=== PATIENT | female | born 1990 | race Caucasian/White ===

== ENCOUNTER 2016-11-16 07:31 | Day surgery (SDC) | payer OTHER ==
[~2016-11-16 07:31] MED LIST: Buffered Lidocaine 0.9% SYRIN* 5 ML/SYR SYRINGE INTRADERM ONE; Buffered Lidocaine 0.9% SYRIN* 5 ML/SYR SYRINGE ONE; ceFAZolin 1 GM in Dextrose (*) 1 GM/50 ML BAG IVPB ONE; ceFAZolin 2 GM PREMIX(*) 2 GM/50 ML BAG IVPB ONE
[2016-11-16 07:41] LABS: UR Preg Internal Control QC Line Present
[2016-11-16] MEDS ORDERED: Bupivacaine 0.5% SDV PF* 30 ML VIAL ONE (08:22)
[2016-11-16] MEDS ORDERED: Propofol* 10 MG/ML 20 ML BTL IV PUSH ONE (09:29)
[2016-11-16] MEDS ORDERED: Atracurium* 10 MG/ML 10 ML VIAL ONE (09:29)
[2016-11-16] MEDS ORDERED: Midazolam* 1 MG/ML 5 ML VIAL (5 MG) ONE (09:29)
[2016-11-16] MEDS ORDERED: fentaNYL* 50 MCG/ML 2 ML VIAL (100 MCG VIAL) ONE ×3 (09:29→11:09)
[2016-11-16] MEDS ORDERED: Succinylcholine* 20 MG/ML 10 ML VIAL ONE (09:56)
[2016-11-16] MEDS ORDERED: Ondansetron INJ* 2 MG/ML VIAL ONE (10:19)
[2016-11-16] MEDS ORDERED: Ketorolac INJ* 30 MG/ML 1 ML VIAL ONE (10:19)
[2016-11-16] MEDS ORDERED: Dexamethasone IV* 4 MG/ML 1 ML (4 MG) ONE (10:19)
[2016-11-16] MEDS ORDERED: HYDROcodone/ACETAMIN 5-325 MG* 1 TAB PO PRN (11:03)
[2016-11-16] MEDS ORDERED: oxyCODONE/Acetamin 5/325 MG* TAB PO PRN (11:03)
[2016-11-16] MEDS ORDERED: DiMENhydriNATE IV* 50 MG/ML VIAL IV PUSH PRN (11:03)
[2016-11-16] MEDS ORDERED: Ondansetron INJ* 2 MG/ML VIAL IV PRN (11:03)
[2016-11-16] MEDS ORDERED: HYDROmorphone* 1 MG/ML 1 ML SYR ONE (11:09)
[2016-11-16] MEDS: fentaNYL* 50 MCG/ML 2 ML VIAL (100 MCG VIAL) IV PRN ×4 (11:13→11:22)
[2016-11-16] MEDS: HYDROmorphone* 1 MG/ML 1 ML SYR IV PRN ×5 (11:14→11:39)
[2016-11-16] MEDS ORDERED: oxyCODONE TAB* 5 MG TAB ONE (11:19)
[2016-11-16 13:00] VITALS: BP 127/81
--- NOTE | 2016-11-17 08:10 | OP ---
DATE OF OPERATION: 11/16/16 [facility] DATE OF : 89 ATTENDING SURGEON: Hill Saxena MD PUBLIC RELATIONS ACCOUNT SUPERVISOR: Natalee Rodas PA-C ANESTHESIOLOGIST: Jeremiah Yu MD ANESTHESIA: General PRE-OP DIAGNOSES: Dislocating right peroneal tendon; painful hardware, right fibula; and superficial peroneal nerve neuroma. POST-OP DIAGNOSES: Dislocating right peroneal tendon; painful hardware, right fibula; and superficial peroneal nerve neuroma. PRIMARY PROCEDURES: Removal of plate, right fibula; reconstruction peroneal groove; and excision of superficial peroneal nerve neuroma. DESCRIPTION OF PROCEDURE: The patient was taken to the operating room, where a longitudinal incision was made over the distal fibula. The fibular plate was identified along the lateral border of the fibula and removed with a combination locking and non-locking screwdriver. We reflected the peroneal retinaculum off the back edge of the fibula to allow visualization of the peroneal tendons, which appeared to be intact. The retinaculum was repaired by first deepening the groove, which was atrophic and somewhat convex. We made an osteotomy directly along the junction of the lateral to posterior cortex. We drove this posterior cortex anteriorly then with the bone tamp. This deepened the groove and allowed through bone sutures of #1 Vicryl using Marko-Pankaj technique to pull the retinaculum firmly at the posterior border of the fibula. The anterior soft tissues were identified and traced out the SPN nerve. There was some thickening and scaring around the nerve pretty much at the level of the mid plate anteriorly. We transected it proximally and tied off the ___ proximally with a 3-0 Ethibond suture. This was buried on paired Mik needles deep to the peroneal musculature exiting the posterior calf. We then irrigated thoroughly closing with interrupted Vicryl for periosteal sheath and nuvia for the skin and a compression dressing, plaster splint applied. [id number]/[facility] #: [id number] [facility]
== END 2016-11-16 13:01 | disposition home or self-care (01) ==
LOC: OR 07:31
PROVIDERS: ATTEND Orthopaedic Surgery
DX: M25.371 Other instability, right ankle (principal); M76.71 Peroneal tendinitis, right leg; M65.871 Other synovitis and tenosynovitis, right ankle and foot; T84.84XA Pain due to internal orthopedic prosthetic devices, implants and grafts, initial encounter; Y83.1 Surgical operation with implant of artificial internal device as the cause of abnormal reaction of the patient, or of later complication, without mention of misadventure at the time of the procedure; G57.81 Other specified mononeuropathies of right lower limb; E66.01 Morbid (severe) obesity due to excess calories
CPT/HCPCS: 81025; 88300; 88304; A9270-GY; J0330; J0690; J1100; J1170; J1885; J2250; J2405; J2704; J3010

== ENCOUNTER 2018-10-04 20:31 | Inpatient (IN) | payer BC, OTHER ==
--- NOTE | 2018-10-04 21:03 | ED ---
Psychiatric Complaint - HPI Summary HPI Summary: A 28 y/o female presents to [facility] with a chief complaint of hearing voices for the past few days. Per triage note, the voices are telling her to kill herself. She was sent to the ED by her therapist. She reports a broken leg, surgeries for her broken leg and nerve damage. She takes medication for depression and anxiety. She takes Gabapentin and Naproxen. She denies any recent illnesses and does not get periods. - History Of Current Complaint Chief Complaint: EDMentalHealth Time Seen by Provider: 10/04/18 20:54 Hx Obtained From: Patient Onset/Duration: Sudden Onset, Lasting Days, Still Present Timing: Days Severity Initially: Mild Severity Currently: Mild Character: Depressed Aggravating Factor(s): Nothing Alleviating Factor(s): Nothing Associated Signs And Symptoms: Positive: Hallucinating Related History: Positive For: Prior Psychiatric Issues Has Suicidal: Reports: Thoughts - voices telling her to commit suicide - Allergies/Home Medications Allergies/Adverse Reactions: Allergies Allergy/AdvReac Type Severity Reaction Status Date / Time Bleach (Sodium Hypochlorite) Allergy Intermediate Rash Verified 10/04/18 12:21 sodium hypochlorite solution Allergy Rash Verified 10/05/18 11:03 Home Medications: Home Medications Prozac 40 mg PO 10/05/18 [History] PMH/Surg Hx/FS Hx/Imm Hx Endocrine/Hematology History: Denies: Hx Diabetes Cardiovascular History: Denies: Hx Hypertension, Hx Pacemaker/ICD, Other Cardiovascular Problems/ Disorders Respiratory History: Denies: Other Respiratory Problems/Disorders GI History: Denies: Other GI Disorders History: Denies: Hx Renal Disease Musculoskeletal History: Denies: Other Musculoskeletal History Sensory History: Reports: Hx Contacts or Glasses - INSTRUCTS GIVEN Denies: Hx Hearing Aid Opthamlomology History: Reports: Hx Contacts or Glasses - INSTRUCTS GIVEN Neurological History: Denies: Other Neuro Impairments/Disorders Psychiatric History: Reports: Hx Anxiety - ON MEDICATION FOR, Hx Depression - ON MEDICATION FOR Denies: Hx Panic Disorder - Surgical History Surgery Procedure, Year, and Place: 1999 TONSILLECTOMY AND ADENOIDECTOMY, [facility] [place]. WART REMOVED FROM LEGS, [facility] [place]. 1999 WISDOM TEETH EXTRACTION, OFFICE. 2015 RT ANKLE ORIF [facility] [place]-TOTAL 4 SURGERIES. 05/2016, right ankle, [facility] [place] ALSO 6/ 2017 Hx Anesthesia Reactions: Yes - STATES COMES "OUT OF SURGERY MEAN AND ANGRY" Infectious Disease History: No Infectious Disease History: Denies: Traveled Outside the [place] in Last 30 Days - Family History Known Family History: Positive: Cardiac Disease, Hypertension, Diabetes - Social History Alcohol Use: None Alcohol Amount: DOESN'T DRINK FREQUENTLY-BUT DRINK ALOT WHEN DOES DRINK Substance Use Type: Reports: Marijuana Substance Use Comment - Amount & Last Used: MARIJUANA USE DAILY Smoking Status (MU): Never Smoked Tobacco Have You Smoked in the Last Year: No Review of Systems Negative: Fever Psychological: Other - positive: hearing voices telling her to kill herself All Other Systems Reviewed And Are Negative: Yes Physical Exam - Summary Physical Exam Summary: Appearance: Well-appearing, Well-nourished, lying in bed comfortable Skin: Warm, dry, no obvious rash Eyes: sclera anicteric, no conjunctival pallor ENT: mucous membranes moist Neck: deferred Respiratory: No signs of respiratory distress Cardiovascular: Appears well perfused, pulses are nml Abdomen: deferred Musculoskeletal: Moving all 4 extremities without obvious discomfort Neurological: Awake and alert, mentation is normal, speech is fluent and appropriate Psychiatric: affect is normal, does not appear anxious or depressed Triage Information Reviewed: Yes Vital Signs On Initial Exam: Initial Vitals Temp Pulse Resp BP Pulse Ox 96.7 F 82 20 133/99 97 10/04/18 20:34 10/04/18 20:34 10/04/18 20:34 10/04/18 20:34 10/04/18 20:34 Vital Signs Reviewed: Yes Diagnostics - Vital Signs Vital Signs Temp Pulse Resp BP Pulse Ox 10/04/18 20:34 96.7 F 82 20 133/99 97 - Laboratory Result Diagrams: 10/06/18 08:48 10/04/18 21:46 Lab Statement: Any lab studies that have been ordered have been reviewed, and results considered in the medical decision making process. Re-Evaluation - Re-Evaluation First Eval Re-Evaluation Time: 23:52 Change: Unchanged Comment: Pt medically cleared for MHE. Course/Dx - Course Course Of Treatment: A 28 y/o female presents to [facility] with a chief complaint of hearing voices for the past few days. Per triage note, the voices are telling her to kill herself. The physical exam was unremarkable. Bloodwork, chemistries, urines and toxicology obtained. The patient has been cleared for MHE. Per mental health digital sales manager, Dr. Mccray has decided that the patient should be admitted. Dx: psychosis. - Differential Dx/Clinical Impression Provider Diagnosis: Psychosis - Physician Notifications Discussed Care Of Patient With: Misbah Mccray Time Discussed With Above Provider: 02:20 Instructed by Provider To: Other - Per mental health digital sales manager, Dr. Mccray has decided that the patient should be admitted. Dx: psychosis. Discharge - Sign-Out/Discharge Documenting (check all that apply): Patient Departure - admit Patient Received Moderate/Deep Sedation with Procedure: No - Discharge Plan Condition: Fair Disposition: PSYCHIATRIC FACILITY[place] [place] - Billing Disposition and Condition Condition: FAIR Disposition: Psychiatric Facility [facility] [place] - Attestation Statements Document Initiated by Tammy: Yes Documenting Scribe: Lavon Oviedo Provider For Whom Tammy is Documenting (Include Credential): Steven Berger MD Scribe Attestation: Lavon Hernandez scribed for Steven Berger MD on 10/08/18 at 0546. Scribe Documentation Reviewed: Yes Provider Attestation: The documentation as recorded by the Lavon hollingsworth accurately reflects the service I personally performed and the decisions made by Steven rodriguez MD Status of Scribe Document: Viewed
[2018-10-04 21:18] LABS: Urine Appearance Clear; Urine Bacteria Absent (Absent); Urine Bilirubin Negative (Negative); Urine Blood 1+ (Negative); Urine Color Yellow; Urine Glucose Negative (Negative); Urine Ketones Negative (Negative); Urine Nitrite Negative (Negative); Urine Protein Negative (Negative); Urine Red Blood Cell 1+(3-5/hpf) (Absent); Urine Specific Gravity 1.014 (1.010-1.030); Urine Squamous Epithelial Cell Present (Absent); Urine Urobilinogen Negative (Negative); Urine White Blood Cell Trace(0-5/hpf) (Absent)
--- OUTSIDE RECORDS SUMMARY | 2018-10-04 21:26 | XMS REPORT | Continuity of Care Document ---
:1990 External Reference #:[id number] Author Name Sarah Banks Care Team Providers Name Role Phone Chely Verdugo MD Primary Care Physician Unavailable Payers Date Identification Numbers Payment Provider Subscriber Policy Number: [id number] Miquel Mayers Group Number: [id number] [address] PayID: [id number] [place] [address] Effective: 2016 Policy Number: [employer] Margaret Mayers [id number] Onset: 2016 Group Number: [id number] [address] [address] Group Name: [id number] [place] [address] [place]: [id number] Advance Directives Description No Information Available Problems Active Problems Provider Date Sprain of ankle Hill Downs MD Onset: 02/25/2016 Unspecified fracture of shaft of right fibula, Hill Downs MD Onset: initial encounter for closed fracture Displaced spiral fracture of shaft of right Hill Downs MD Onset: 2015 fibula, subsequent encounter for closed fracture with routine healing Late effect of fracture of lower extremities Hill Downs MD Onset: 2016 Family History Date Family Member(s) Observation Comments General Diabetes General Heart Disease General Stroke General Cancer General Hypertension Social History Type Date Description Comments Sex Unknown Lives With Roommate Occupation Currently Working ETOH Use Occasionally consumes alcohol Tobacco Use Start: Unknown Patient has never smoked Smoking Status Reviewed: 09/22/18 Patient has never smoked Exercise Type/Frequency Exercises sporadically Allergies, Adverse Reactions, Alerts Description No Known Drug Allergies Medications Active Medications SIG Qnty Indications Ordering Provider Date Naproxen 1 by mouth every 60tabs Dawit Muniz MD 07/29/2018 500mg Tablets 12 hours as needed pain Gabapentin take one capsule 60caps Hill Saxena, 11/19/2016 300mg by mouth twice a M.D. Capsules day Shower Chair 1units Hill Saxena, 11/17/2016 M.D. Nexplanon inserted Unknown Ibuprofen 1 by mouth three Unknown 600mg Tablets times a day as needed Buspirone HCL Lucina Chely 10mg MD Mary Tablets Fluoxetine HCL (PMDD) 1 by mouth every Unknown day 20mg Capsules History Medications Oxycodone HCL 1-2 tabs by mouth 15tabs Hill Saxena, 09/13/2017 - 5mg every 4-6 hours as M.D. 09/27/2017 Tablets needed Valium 1 tab by mouth 1 2tabs Hill Saxena, 02/22/2017 - 2mg hour prior to M.D. 08/25/2017 Tablets procedure, may repeat dose at time of procedure if needed Naproxen 1 by mouth twice a 42tabs M76.71 Hill Saxena, 01/12/2017 - 500mg day as needed M.D. 08/25/2017 Tablets Oxycodone HCL 1-2 tabs by mouth 30tabs Hill Saxena, 11/16/2016 - 5mg every 4-6 hours as M.D. 06/07/2017 Tablets needed Knee Scooter use as needed s/p T84.84xA Hill Saxena, 11/12/2016 - right ankle M.D. 10/18/2017 surgery M65.871 [place] 1 tab by mouth 20tabs Hill Downs 05/28/2016 - 5-325mg Tablets every 6 hours as 09/05/2016 needed pain Zoloft per pt Unknown - 200mg Tablets 06/07/2017 Oxycodone-Acetaminophe Unknown - n 09/05/2016 5-325mg/5ML Solution Sertraline HCL 1 by mouth every Unknown - 200mg day 06/30/2017 Tablets Amoxicillin 1 by mouth twice Unknown - 250mg a day x 10 days 06/07/2017 Capsules Duloxetine HCL 1 by mouth every Unknown - 60mg Caps day 07/13/2018 DR Ashton Medications Administered in Office Medication SIG Qnty Indications Ordering Provider Date Depomedrol 40MG Hill Saxena M.D. 01/25/2018 Injection Depomedrol 40MG Hill Saxena M.D. 07/01/2017 Injection Depomedrol 40MG Hill Saxena M.D. 02/26/2017 Injection Immunizations Description No Information Available Vital Signs Date Vital Result Comment 09/22/2018 10:06am Height 65 inches 5'5" Heart Rate 72 /min BP Systolic 124 mmHg BP Diastolic 72 mmHg Respiratory Rate 18 /min Body Temperature 97.9 F Pain Level 5 08/23/2018 10:22am Height 65 inches 5'5" Weight 280.00 lb Heart Rate 69 /min Body Temperature 98.4 F O2 % BldC Oximetry 98 % BMI (Body Mass Index) 46.6 kg/m2 08/04/2018 10:57am Height 65 inches 5'5" Heart Rate 72 /min Respiratory Rate 18 /min Body Temperature 98.2 F Pain Level 8 07/14/2018 10:46am Height 65 inches 5'5" Heart Rate 72 /min BP Systolic 132 mmHg BP Diastolic 74 mmHg Respiratory Rate 17 /min Pain Level 6 04/14/2018 10:06am Height 65 inches 5'5" Weight 319.00 lb Heart Rate 76 /min Respiratory Rate 17 /min Body Temperature 97.0 F Pain Level 5 BMI (Body Mass Index) 53.1 kg/m2 01/25/2018 11:25am Height 65 inches 5'5" Weight 319.00 lb Heart Rate 64 /min BP Systolic Sitting 130 mmHg BP Diastolic Sitting 90 mmHg Body Temperature 99.1 F Pain Level 4 BMI (Body Mass Index) 53.1 kg/m2 11/30/2017 10:51am Height 64 inches 5'4" Heart Rate 84 /min BP Systolic 148 mmHg BP Diastolic 82 mmHg Respiratory Rate 17 /min Body Temperature 98.1 F Pain Level 2 10/19/2017 9:47am Height 64 inches 5'4" Weight 282.00 lb Heart Rate 78 /min BP Systolic Sitting 124 mmHg BP Diastolic Sitting 72 mmHg Body Temperature 98.4 F Pain Level 4 BMI (Body Mass Index) 48.4 kg/m2 09/29/2017 4:03pm Height 64 inches 5'4" Weight 280.00 lb Heart Rate 66 /min BP Systolic Sitting 120 mmHg BP Diastolic Sitting 70 mmHg Respiratory Rate 16 /min Pain Level 0 BMI (Body Mass Index) 48.1 kg/m2 09/23/2017 9:17am Height 64 inches 5'4" Weight 280.00 lb BP Systolic 130 mmHg BP Diastolic 90 mmHg Respiratory Rate 20 /min Body Temperature 97.4 F Pain Level 4 BMI (Body Mass Index) 48.1 kg/m2 08/24/2017 10:21am Height 64 inches 5'4" Weight 280.00 lb Heart Rate 77 /min BP Systolic Sitting 126 mmHg BP Diastolic Sitting 72 mmHg Pain Level 6 BMI (Body Mass Index) 48.1 kg/m2 08/05/2017 10:03am Height 64 inches 5'4" Weight 280.00 lb per pt Heart Rate 80 /min reg BP Systolic Sitting 100 mmHg Lue BP Diastolic Sitting 66 mmHg Lue Respiratory Rate 16 /min Pain Level 7 Ble BMI (Body Mass Index) 48.1 kg/m2 07/01/2017 8:56am Height 64 inches 5'4" Weight 280.00 lb BP Systolic 134 mmHg BP Diastolic 90 mmHg Respiratory Rate 18 /min Body Temperature 98.5 F Pain Level 5 BMI (Body Mass Index) 48.1 kg/m2 05/14/2017 2:00pm Height 64 inches 5'4" Weight 280.00 lb BP Systolic 130 mmHg BP Diastolic 88 mmHg Body Temperature 97.6 F Pain Level 6 BMI (Body Mass Index) 48.1 kg/m2 03/30/2017 11:08am Height 65 inches 5'5" Weight 280.00 lb Respiratory Rate 16 /min Body Temperature 97.7 F BMI (Body Mass Index) 46.6 kg/m2 02/26/2017 2:46pm Height 64 inches 5'4" Weight 280.00 lb Heart Rate 66 /min Respiratory Rate 17 /min Body Temperature 98.0 F Pain Level 7 BMI (Body Mass Index) 48.1 kg/m2 02/09/2017 9:26am Height 64 inches 5'4" Weight 280.00 lb BP Systolic 116 mmHg BP Diastolic 80 mmHg Respiratory Rate 20 /min Body Temperature 98.7 F Pain Level 6 BMI (Body Mass Index) 48.1 kg/m2 01/12/2017 9:47am Height 64 inches 5'4" Weight 280.00 lb Heart Rate 73 /min BP Systolic 130 mmHg BP Diastolic 86 mmHg Body Temperature 97.5 F BMI (Body Mass Index) 48.1 kg/m2 12/22/2016 11:46am Height 64 inches 5'4" Weight 280.00 lb BP Systolic Sitting 122 mmHg BP Diastolic Sitting 78 mmHg Respiratory Rate 16 /min Body Temperature 98.4 F Pain Level 3 BMI (Body Mass Index) 48.1 kg/m2 12/01/2016 11:25am Height 65 inches 5'5" Weight 280.00 lb Body Temperature 98.1 F Pain Level 6 BMI (Body Mass Index) 46.6 kg/m2 10/20/2016 11:10am Height 65 inches 5'5" Weight 280.00 lb BP Systolic 115 mmHg BP Diastolic 85 mmHg Body Temperature 97.7 F BMI (Body Mass Index) 46.6 kg/m2 09/15/2016 11:10am Height 65 inches 5'5" Weight 280.00 lb Heart Rate 84 /min BP Systolic 114 mmHg BP Diastolic 70 mmHg Respiratory Rate 17 /min Body Temperature 98.3 F Pain Level 8 BMI (Body Mass Index) 46.6 kg/m2 08/14/2016 3:08pm Height 65 inches 5'5" Weight 280.00 lb Heart Rate 72 /min BP Systolic 119 mmHg BP Diastolic 87 mmHg Respiratory Rate 16 /min Pain Level 7 BMI (Body Mass Index) 46.6 kg/m2 07/22/2016 1:21pm Height 65 inches 5'5" Weight 280.00 lb Heart Rate 73 /min BP Systolic 131 mmHg BP Diastolic 77 mmHg Pain Level 6 BMI (Body Mass Index) 46.6 kg/m2 06/12/2016 1:41pm Height 64 inches 5'4" Weight 280.00 lb Respiratory Rate 16 /min Body Temperature 99.1 F Pain Level 0 BMI (Body Mass Index) 48.1 kg/m2 05/05/2016 3:32pm Height 64 inches 5'4" Weight 280.00 lb Respiratory Rate 17 /min Body Temperature 98.5 F Pain Level 7 BMI (Body Mass Index) 48.1 kg/m2 04/10/2016 2:02pm Height 64 inches 5'4" Weight 280.00 lb BP Systolic 124 mmHg BP Diastolic 72 mmHg Pain Level 0 BMI (Body Mass Index) 48.1 kg/m2 03/27/2016 3:39pm Height 64 inches 5'4" Weight 280.00 lb Respiratory Rate 16 /min Pain Level 6 BMI (Body Mass Index) 48.1 kg/m2 03/11/2016 2:54pm Heart Rate 88 /min Respiratory Rate 20 /min Pain Level 2 02/25/2016 1:33pm Height 64 inches 5'4" Weight 280.00 lb BP Systolic 125 mmHg BP Diastolic 80 mmHg Pain Level 8 BMI (Body Mass Index) 48.1 kg/m2 Results Test Date Facility Test Result H/L Range Note Laboratory test 09/13/2017 [facility] Surgical SEE RESULT [address] Pathology BELOW [place], [place] [id number] [phone] Laboratory test 11/16/2016 [facility] Surgical SEE RESULT [address] [place] [address] [phone] Laboratory test 11/16/2016 [facility] Negative N Negative [address] (HCG) Urine [place], [place] [id number] [phone] Laboratory test 05/28/2016 [facility] Surgical SEE RESULT 4 , [address] [place] [address] [phone] Xray 03/11/2016 [facility] Ankle Left <pending> [address] 3+VWS [place], [place] [id number] [phone] Laboratory test 02/27/2016 [facility] Negative N Negative [address] (HCG) [place] [address] [phone] 1 SEE RESULT BELOW Name: MARGARET MAYERS : [address]: Hill Saxena MD Acct: [id number] Unit: [id number] AGE: 27 Location: OR Re09/13/17 SEX: F Status: [facility] SPEC: [id number] MASOOD: 09/13/17- SUBM DR: Hill Saxena MD REQ: [id number] RECD: 09/13/17 STATUS: SOUT _ ORDERED: Decal, LEVEL 3 FINAL DIAGNOSIS Bone and cartilage, right foot, resection: -- Degenerative osteoarthritic changes. PRE-OPERATIVE DIAGNOSIS Calcaneal navicular coalition right. GROSS DESCRIPTION The specimen is received in formalin labeled, Right Foot Bone Fragments, and consists of a 3.3 x 3.0 x 0.7 cm aggregate of king-pink irregular bone fragments. Staff Nurse [facility] [employer] Team sections, one cassette following decalcification. MICROSCOPIC DESCRIPTION Signed (signature on file) Aditya Khanna MD 0919 END OF REPORT DEPARTMENT OF PATHOLOGY, [address] [place] [address] Aditya Khanna M.D. Director [facility] # [id number] 2 SEE RESULT BELOW Name: MARGARET MAYERS : [address]: Hill Saxena MD Acct: [id number] Unit: [id number] AGE: 26 Location: OR Re11/16/16 SEX: F Status: [facility] [place] SPEC: [id number] MASOOD: 11/16/16- [facility] DR: Hill Saxena MD REQ: [id number] RECD: 11/16/16 STATUS: SOUT _ ORDERED: LEVEL 1, LEVEL 3 FINAL DIAGNOSIS 1. Ankle, right, hardware removal: Foreign body (orthopedic hardware) (Gross diagnosis). 2. Ankle, right, excision: Neuroma. PRE-OPERATIVE DIAGNOSIS Painful hardware right ankle GROSS DESCRIPTION 1. The specimen is received fresh labeled, Hardware Right Ankle, and consists of an 11.6 x 1.0 x 0.1 cm silver metallic elongated plate with multiple ovoid holes. The following inscription is identified: [id number]. Received separately in the same container are eight silver metallic threaded Pankaj-headed screws ranging from 1.2 x 0.3 cm to 1.6 x 0.3 cm. Per established hospital medical staff protocol, no tissue is submitted. Gross only. 2. The specimen is received in formalin labeled, Right Ankle Neuroma, and consists of a 4.8 by up to 0.9 x 0.4 cm king irregular to elongated soft tissue fragment and adherent yellow fat. Staff Nurse [facility] [employer] Team sections, one cassette. Signed (signature on file) Denisha Merritt MD 1030 END OF REPORT * ML=Testing performed at Main Lab DEPARTMENT OF PATHOLOGY, [address] [place] [address] Aditya Khanna M.D. Director [facility] # [id number] 3 If is still suspected, please repeat test after 48 to 72 hours. This test detects intact HCG only and is indicated for the early detection of . 4 [id number] 5 SEE RESULT BELOW Name: MARGARET MAYERS : [address]: Hill Downs MD Acct: [id number] Unit: [id number] AGE: 25 Location: [facility] Re05/28/16 SEX: F Status: [facility] SPEC: [id number] MASOOD: 05/28/160940 [facility] DR: Hill Downs MD REQ: [id number] RECD: 05/28/16918 STATUS: SOUT _ ORDERED: LEVEL I COMMENTS: [id number] FINAL DIAGNOSIS Right ankle, hardware removal: Foreign body (orthopedic hardware) (Gross diagnosis). PRE-OPERATIVE DIAGNOSIS Status post right ankle open reduction internal fixation GROSS DESCRIPTION The specimen is received fresh labeled, Hardware Right Ankle Two Screws, and consists of two silver metallic threaded Pankaj-headed screws averaging 5.0 x 0.3 cm. Per established hospital medical staff protocol, no tissue is submitted. Gross only. Signed (signature on file) Denisha Merritt MD 1012 END OF REPORT * ML=Testing performed at Main Lab DEPARTMENT OF PATHOLOGY, [address] [place] [address] Aditya Khanna M.D. Director [facility] # [id number] 6 If is still suspected, please repeat test after 48 to 72 hours. This test detects intact HCG only and is indicated for the early detection of . Procedures Date Code Description Status 01/25/2018 06076 Injection,Anesthetic Agent, Other Peripheral Nerve Branch Completed 09/13/2017 70336 Ostectomy Excision Tarsal Coalition Completed 09/13/2017 01341 Ostectomy Excision Tarsal Coalition Completed 09/13/2017 74502 Ostectomy Excision Tarsal Coalition Completed 07/01/2017 11326 Injection,Anesthetic Agent, Other Peripheral Nerve Branch Completed 02/26/2017 58023 Inject Tendon Sheath Or Ligament Aponeurosis Eg Plantar Completed Fascia 12/01/2016 25916 Short Leg Cast Completed 11/16/201620754 Removal Implant Deep Wire,Screw Nail,Ronni Or Plate Completed 11/16/2016 60839 Repair Dislocating Peroneal Tendon W/Fibular Osteotomy Completed 11/16/2016 78759 Repair Dislocating Peroneal Tendon W/Fibular Osteotomy Completed 11/16/2016 60446 Excision Neuroma, Hand Or Foot Completed 11/16/2016 56113 Implant Nerve End Into Bone Or Muscle Completed 05/28/201664708 Removal Implant Deep Wire,Screw Nail,Ronni Or Plate Completed 05/28/201615607 Removal Implant Deep Wire,Screw Nail,Ronni Or Plate Completed 05/28/2016 61447 Removal Implant Deep Wire,Screw Nail,Ronni Or Plate Completed 03/11/2016 45094 Long Leg Cast Completed 03/11/2016 89473 Long Leg Cast Completed 02/27/2016 44370 Open TX Of Distaltibiofibular JT Disruption W Or W/O Completed Fixation 02/27/2016 38169 Open TX Of Distaltibiofibular JT Disruption W Or W/O Completed Fixation 02/27/2016 29278 Open TX Of Distaltibiofibular JT Disruption W Or W/O Completed Fixation 02/27/2016 54791 Open TX Of Distaltibiofibular JT Disruption W Or W/O Completed Fixation 02/27/2016 62466 ORIF Open TX Distal Fibular FX Incl Internal Fixation When Completed Perfom 02/27/2016 94280 ORIF Open TX Distal Fibular FX Incl Internal Fixation When Completed Perfom Encounters Type Date Location Provider Dx Diagnosis Office Visit 08/23/2018 [facility] M19.071 Primary 10:00a Services Of Daphne Saxena osteoarthritis, right C.M.A. 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 Office Visit 04/14/2018 Suzanna Alejandre G57.81 Other specified 10:00a Services Of Daphne Saxena mononeuropathies of C.M.A. right lower limb Office Visit 01/25/2018 [facility] G57.81 Other specified 10:30a Services Of Daphne Saxena mononeuropathies of C.M.A. right lower limb Office Visit 08/24/2017 [facility] M19.071 Primary 10:15a Services Of Daphne Saxena osteoarthritis, right C.M.A. ankle and foot M19.071 Primary osteoarthritis, right ankle and foot Office Visit 08/05/2017 Suzanna Solano9.071 Primary 10:00a Services Of Daphne Saxena osteoarthritis, C.M.A. 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 right lower limb Office Visit 05/14/2017 Suzanna Triplett Peroneal tendinitis, 2:15p Services Of Daphne Saxena right leg C.M.A. Office Visit 03/30/2017 Suzanna Triplett Peroneal tendinitis, 11:15a Services Of Daphne Saxena right leg C.M.A. Office Visit 10/20/2016 Suzanna Triplett Peroneal tendinitis, 10:45a Services Of Daphne Saxena right leg C.M.A. M65.871 Other synovitis and tenosynovitis, right ankle and foot T84.84xA Pain due to internal orthopedic prosth dev/grft, init G57.81 Other specified mononeuropathies of right lower limb Office Visit 09/15/2016 10:15a [facility] S82.441D Displ spiral fx Services Of Daphne Saxena shaft of r C.M.A. fibula, 7thD Office Visit 02/25/2016 1:00p [facility] S82.401A Unsp fracture Services Of MD Yareli of shaft of C.M.A. right fibula, init for clos fx S82.444A Nondisplaced spiral fracture of shaft of right fibula, init S82.401A Unsp fracture of shaft of right fibula, init for clos fx S93.402A Sprain of unspecified ligament of left ankle, init encntr S82.444A Nondisplaced spiral fracture of shaft of right fibula, init Plan of Treatment 09/22/2018 - Hill Saxena M.D.M19.071 Primary osteoarthritis, right ankle and footNew Xrays:MRI Ankle Right W/O, Ordered: 09/22/18Follow up:after testing is [id number] Peroneal tendinitis, right leg
--- OUTSIDE RECORDS SUMMARY | 2018-10-04 21:26 | XMS REPORT | Continuity of Care Document ---
:1990 External Reference #:[id number] Author Name TomVicky altman Care Team Providers Name Role Phone Chely Verdugo MD Primary Care Physician Unavailable Payers Date Identification Numbers Payment Provider Subscriber Policy Number: [id number] Miquel Mayers Group Number: [id number] [phone] PayID: [id number] [place] [address] Effective: 2016 Policy Number: [employer] Margaret Mayers [id number] Onset: 2016 Group Number: [id number] [address] [id number] Group Name: [id number] [place] [address] [place]ID: [place] Advance Directives Description No Information [...] times a day as needed Buspirone HCL Chely Verdugo 10mg MD Mary Tablets Fluoxetine HCL (PMDD) [...] - right ankle M.D. 10/18/2017 surgery M65.871 [place] 1 tab by mouth 20tabs [place] [...] 1 by mouth every Unknown - 60mg 07/13/2018 DR Part Medications Administered in Office Medication SIG Qnty [...] Result H/L Range Note Laboratory test 09/13/2017 [facility] Surgical SEE RESULT [address] Pathology BELOW [place], [place] [id number] [phone] Laboratory test 11/16/2016 [facility] Surgical SEE RESULT [address] Pathology BELOW [place], [place] [address] [phone] Laboratory test 11/16/2016 [facility] Negative N Negative [address] (HCG) Urine [place], [place] [address] [phone] Laboratory test 05/28/2016 [facility] Surgical SEE RESULT 4 , [address] Pathology BELOW [place], [place] [address] [phone] Xray 03/11/2016 [facility] Ankle Left <pending> [address] 3+VWS [place], [place] 399[address] [phone] Laboratory test 02/27/2016 [facility] Negative N Negative [address] (HCG) Urine [place], [place] [address] [phone] 1 SEE RESULT BELOW Name: VANGIESATURNINOMARGARET : [address]: Hill Saxena MD Acct: [id number] Unit: [id number] AGE: 27 Location: OR Re09/13/17 SEX: F Status: [facility] SPEC: [id number] MASOOD: 09/13/17- SUBM DR: Hill Saxena MD REQ: [id number] RECD: 09/13/17 STATUS: SOUT _ ORDERED: Decal, LEVEL 3 FINAL DIAGNOSIS Bone and cartilage, right foot, resection: -- Degenerative osteoarthritic changes. PRE-OPERATIVE DIAGNOSIS Calcaneal navicular coalition right. GROSS DESCRIPTION The specimen is received in formalin labeled, Right Foot Bone Fragments, and consists of a 3.3 x 3.0 x 0.7 cm aggregate of king-pink irregular bone fragments. Aircraft Machinist Helper sections, one cassette following decalcification. MICROSCOPIC DESCRIPTION Signed (signature on file) Aditya Khanna MD 0919 END OF REPORT DEPARTMENT OF PATHOLOGY, [address] [place] [address] Aditya Khanna M.D. Director [facility] # [id number] 2 SEE RESULT BELOW Name: MARGARET MAYERS : [address]: Hill Saxena MD Acct: [id number] Unit: [id number] AGE: 26 Location: OR Re11/16/16 SEX: F Status: DEP [facility] [place] SPEC: [id number] MASOOD: 11/16/16- SUBM DR: Hill Saxena MD REQ: [id number] RECD: 11/16/16 STATUS: SOUT _ ORDERED: LEVEL [...] ovoid holes. The following inscription is identified: [id number] [id number]. Received separately in the same container are [...] soft tissue fragment and adherent yellow fat. Aircraft Machinist Helper sections, one cassette. Signed (signature on file) Denisha Merritt MD 1030 END OF REPORT * ML=Testing performed at Main Lab DEPARTMENT OF PATHOLOGY, [address] [place] [address] Aditya Khanna M.D. Director [facility] # [id number] 3 If is still suspected, please repeat test after 48 to 72 hours. This test detects intact HCG only and is indicated for the early detection of . 4 [id number] 5 SEE RESULT BELOW Name: MARGARET MAYERS : [address]: Hill Downs MD Acct: [id number] Unit: [id number] AGE: 25 Location: [facility] Re05/28/16 SEX: F Status: REG [facility] SPEC: [id number] MASOOD: 05/28/160940 [facility] DR: Hill Downs MD REQ: [id number] RECD: 05/28/162157 STATUS: SOUT _ ORDERED: LEVEL I COMMENTS: [id number] FINAL DIAGNOSIS Right ankle, hardware removal: Foreign [...] performed at Main Lab DEPARTMENT OF PATHOLOGY, [address] [place] [address] Aditya Khanna M.D. Director [facility] # [id number] 6 If is still suspected, please repeat test after 48 to 72 hours. This test detects intact HCG only and is indicated for the early detection of . Procedures Date Code Description Status 01/25/2018 77719 Injection,Anesthetic Agent, Other Peripheral Nerve Branch Completed 09/13/2017 13184 Ostectomy Excision Tarsal Coalition Completed 09/13/2017 25125 Ostectomy Excision Tarsal Coalition Completed 09/13/2017 01906 Ostectomy Excision Tarsal Coalition Completed 07/01/2017 71786 Injection,Anesthetic Agent, Other Peripheral Nerve Branch Completed 02/26/2017 01360 Inject Tendon Sheath Or Ligament Aponeurosis Eg Plantar Completed Fascia 12/01/2016 21953 Short Leg Cast Completed 11/16/201693714 Removal Implant Deep Wire,Screw Nail,Ronni Or Plate Completed 11/16/2016 15882 Repair Dislocating Peroneal Tendon W/Fibular Osteotomy Completed 11/16/2016 23115 Repair Dislocating Peroneal Tendon W/Fibular Osteotomy Completed 11/16/2016 11539 Excision Neuroma, Hand Or Foot Completed 11/16/2016 77421 Implant Nerve End Into Bone Or Muscle Completed 05/28/201625703 Removal Implant Deep Wire,Screw Nail,Ronni Or Plate Completed 05/28/201655639 Removal Implant Deep Wire,Screw Nail,Ronni Or Plate Completed 05/28/2016 57047 Removal Implant Deep Wire,Screw Nail,Ronni Or Plate Completed 03/11/2016 00041 Long Leg Cast Completed 03/11/2016 00400 Long Leg Cast Completed 02/27/2016 92078 Open TX Of Distaltibiofibular JT Disruption W Or W/O Completed Fixation 02/27/2016 13615 Open TX Of Distaltibiofibular JT Disruption W Or W/O Completed Fixation 02/27/2016 95934 Open TX Of Distaltibiofibular JT Disruption W Or W/O Completed Fixation 02/27/2016 51778 Open TX Of Distaltibiofibular JT Disruption W Or W/O Completed Fixation 02/27/2016 92132 ORIF Open TX Distal Fibular FX Incl Internal Fixation When Completed Perfom 02/27/2016 32017 ORIF Open TX Distal Fibular FX Incl Internal Fixation When Completed Perfom Encounters Type Date Location Provider Dx Diagnosis Office Visit 09/22/2018 [facility] M19.071 Primary 9:45a [facility] osteoarthritis, right ankle and foot M76.71 Peroneal tendinitis, right leg Office Visit 08/23/2018 Suzanna Alejandre M19.071 Primary 10:00a Services Of [facility]ne Saxena osteoarthritis, right C.M.A. 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 Office Visit 04/14/2018 [facility] G57.81 Other specified 10:00a Services Of D[facility] Saxena mononeuropathies of C.M.A. right lower limb Office Visit 01/25/2018 [facility] G57.81 Other specified 10:30a Services Of [facility] Saxena mononeuropathies of C.M.A. right lower limb Office Visit 08/24/2017 Suzanna Alejandre M19.071 Primary 10:15a [facility] Saxena osteoarthritis, right C.M.A. ankle and foot M19.071 Primary osteoarthritis, right ankle and foot Office Visit 08/05/2017 [facility] M19.071 Primary 10:00a [facility] Saxena osteoarthritis, C.M.A. 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 right lower limb Office Visit 05/14/2017 Suzanna Escalera.71 Peroneal tendinitis, 2:15p Services [facility] Saxena right leg C.M.A. Office Visit 03/30/2017 Suzanna Triplett Peroneal tendinitis, 11:15a Services [facility] Saxena right leg C.M.A. Office Visit 10/20/2016 Suzanna Escalera.71 Peroneal tendinitis, 10:45a Services Of Daphne Saxena [...] and footNew Xrays:MRI Ankle Right W/O, Ordered: 09/22/18M76.71 Peroneal tendinitis, right leg
[2018-10-04 21:35] LABS: Urine Benzodiazepine Screen None Detected (None Detect); Urine Opiates Screen None Detected (None Detect)
[2018-10-04 22:06] LABS: Hematocrit 42 % (33-41); Hemoglobin 13.7 g/dL (12.0-16.0); Mean Corpuscular HGB Conc 33 g/dL (31-36); Mean Corpuscular Hemoglobin 27 pg (27-31); Mean Corpuscular Volume 83 fL (80-97); Platelet Count 440 10^3/uL (150-450); Red Blood Count 5.06 10^6 /uL (3.70-4.87); Red Cell Distribution Width 15 % (10.5-15); White Blood Count 16.8 10^3/uL (3.5-10.8)
[2018-10-04] MEDS ORDERED: Acetaminophen TAB* 325 MG PO ONE (22:07)
[2018-10-04] MEDS ORDERED: Ondansetron ODT TAB* 4 MG PO ONE (22:07)
[2018-10-04 22:10] LABS: ALT 18 U/L (7-52); AST 15 U/L (13-39); Albumin 4.3 g/dL (3.2-5.2); Albumin/Globulin Ratio 1.4 (1-3); Alkaline Phosphatase 71 U/L (34-104); Anion Gap 7 mmol/L (2-11); BUN/Creatinine Ratio 15.2 (8-20); Blood Urea Nitrogen 10 mg/dL (6-24); CO2 Carbon Dioxide 26 mmol/L (22-32); Calcium 9.4 mg/dL (8.6-10.3); Chloride 106 mmol/L (101-111); EGFR Non-African American 107.4 (>60); Globulin 3.1 g/dL (2-4); Glucose 102 mg/dL (70-100); Sodium 139 mmol/L (135-145); Total Protein 7.4 g/dL (6.4-8.9)
[2018-10-04 22:17] LABS: HCG Pregnancy < 0.60 mIU/mL
[2018-10-04 22:23] LABS: Acetaminophen < 15 mcg/mL; Alcohol < 10 mg/dL (<10); Salicylate < 2.50 mg/dL (<30)
[2018-10-04 22:33] LABS: ABS Basophils 0.2 10^3/ul (0-0.2); ABS Eosinophils 0.2 10^3/ul (0-0.6); ABS Neutrophils 10.5 10^3/ul (1.5-7.7); ABS Nucleated RBC 0 10^3/ul; Lymphocyte % 29.8 %; Nucleated Red Blood Cells % 0
[2018-10-04 22:38] LABS: TSH (Thyroid Stimulating Horm) 5.18 mcIU/mL (0.34-5.60)
[2018-10-05] MEDS ORDERED: Al Hydrox/Mg Hydrox/Simet LIQ* 30 ML UDC PO PRN (04:08)
--- NOTE | 2018-10-05 10:20 | HP ---
H&P (Free Text) History and Physical: Justification for admission: Immediate Safety. CC " I hear a voice that bothers me" The patient was brought to [facility] by herself after hearing a voice for the last 6 weeks telling her methods to end her life. She reported being distressed by these thoughts. The ideas that she thought about include knowing where her fathers guns are located to kills herself. Once having these thoughts she feels bad about it causing her anxiety. She expressed this to her therapist who advised her to come to the hospital. 2 weeks ago her prozac was increased from 20mg to 40mg daily by her primary care doctor. Many years she reported counting and checking many times to provide relief of anxiety. She mentioned being at her doctors office and everyone was told to evacuate due to a gas leak. She was determined to leave the building as said that if she wanted to she would have stayed. She reported having access to firearms at her fathers and knows how to access the safe where they are located. She reported having a stockpile of medication. She reported decreased sleep and wakes up early. She lost 50lbs since December. She reported having night sweats. The patient denied homicidal ideation intent or plan. The patient denied visual hallucinations. MDD She reported feeling sad and depressed and has diminished interests which were found to be enjoyable in the past. Endorsed feelings of hopelessness or worthless. Reported 50lbs weight loss since December. Endorsed interruption of sleep or feeling tired throughout the day. Reported loss of energy or lack of motivation to complete tasks and decreased concentration. Anxiety Endorsed having symptoms of anxiety such as having times where heart feels that it is beating out of chest , sweaty palms, or shallow breathing. Endorsed feeling restless, high strung, or worrying too much most of the time. Bipolar Denied symptoms of alcira such as having many ideas at once. Denied increased talkativeness where no one can interrupt. Denied feeling irritable most of the time while having an persistent abundance of energy most of the day without the use of energy drinks, stimulants, or recreational drug use. Denied an increase in intensity in goal directed activities. Denied having the decreased need to sleep for days , having prolonged elevated heighted mood , or feeling on top of the world. Denied impulsive risky sexual encounters. Denied spending money recklessly , going on spending sprees wiping out savings. Denied impulsively traveling out of town or country, having super larsen, and unrealistic wealth or fame. Psychosis Does not endorse seeing things other people do not see. Denied feeling that TV is making references. Denied feeling that people are spying , following , or reading their thoughts. Phobias: Patient denied having excessive fear of a particular thing or situation. Eating disorders: Patient denied having excessive eating habits or feelings of guilt after eating. Denied repeated episodes of self induced vomiting after eating. PTSD Denied flashbacks, nightmares and avoidance of a prior traumatic event. PAST PSYCHIATRIC HISTORY: Prior Diagnosis : Major depressive Disorder, Generalized Anxiety Disorder History of past Psychiatric Hospitalizations: No prior psychiatric admission. History of past suicide/homicide attempts : Denied past suicide attempts. Denied past homicidal incidents. Outpatient follow-up: PCP and Psychologist Jose Yang Medications: Past trials of medications include prozac 40mg daily and buspar 15mg BID taking for 6 months. Guardianship: None. FAMILY HISTORY: - Suicide: Denied family history of suicide. - Mental illness: Denied a history of mental health in immediate family members. - Substance abuse: Denied substance abuse among family members. SUBSTANCE ABUSE HISTORY: Denied using alcohol, heroin and cocaine other illicit substances. Denied abusing pills not prescribed . Denied past Substance abuse treatment. - EtOH: Denied using recently or in the past. - Tobacco: Smokes 1/2 PPD - Cannabis: Uses daily - Heroin: Denied using recently or in the past. - Cocaine: Denied using recently or in the past. - Substance abuse treatment: Denied past substance abuse treatment SOCIAL HISTORY: Denied physical and or sexual abuse Born and raised in [place], [place] by both parents. She is single no children and lives in a carriage house with her cousins in [place] She works at the [employer] in [place]. - Legal history: Denied - service history: Denied PAST MEDICAL HISTORY: Right fibula fracture. Bacterial vaganosis Dx and treated a week ago. - Allergies: Bleach and chlorine Physical Exam: Please see ED note Mental Status Exam on Admission APPEARANCE : 28 year old female who appears stated age. Obese, appears to have fair hygiene and grooming. BEHAVIOR: Cooperative , calm EYE CONTACT: Fair PSYCHOMOTOR ACTIVITY: No psychomotor agitation or retardation. MOVEMENTS: No abnormal movements observed. SPEECH : Normal rate, rhythm, volume and tone. MOOD : "Anxious " AFFECT : Type is anxious Range is full , Mood congruent, Stable THOUGHT PROCESS: formulated and organized in a logical, linear goal directed manner. No flight of ideas , neologism (made up words) , perseveration , tangential , loose associations , or circumstantiality. THOUGHT CONTENT: preoccupation about suicidal thoughts PERCEPTION: Current auditory hallucinations. Doesnt appear to be responding to internal cues. No evidence of depersonalization , de-realization, or illusions SUICIDALITY Recent suicidal ideation HOMICIDALITY Denied homicidal ideation, intent or plan. Insight/judgment: Fair insight and judgment ORIENTATION: Oriented to self, location, and time. Diagnosis on Admission: Obsessive Compulsive Disorder. Tobacco use disorder. Cannabis use disorder Assessment: 28 year old female with history of depression came to the hospital with suicidal ideation Plan #Admit to BSU, Q15 minute observation. Start regular diet. Encourage participation in activities on the milieu. #Patient evaluated in ED and was determined by the emergency room Physician to be medically stable for admission to the BSU. # Justification for Admission: For immediate safety per outlined in the [place] Mental Hygiene Code. # Voluntary admission. The patient requires inpatient admission at this time to assure safety, receive treatment and work toward stabilization. # Labs ordered: CBC, CMP, UDS, TSH, HBA1c, TSH, Toxicology screen, Urine analysis, and lipid profile. B-HCG was ordered and results are negative. # Obtain collateral information from family and therapist once release is signed. # Collaboration with Social Work to assist with disposition and after care. #MMPI #D/C constant observation. # Start fluvoxamine 100mg daily for OCD. Will consider clomipramine if treatment resistant. Medicine consult to address medical issues that include elevated WBC. Hospitalist informed and plans to evaluate patient. Tobacco use disorder: nicotine supplement offered and put in place. #Goals before discharge include: Decrease intrusive thoughts. The risks, benefits, and alternative treatment options were discussed as well as of the risks of refusing treatment. After this discussion and an acknowledgement of this understanding was made. A risk/ benefit assessment of treatment was considered and discussed with the patient. When comparing the risks of treatment with the dangers of not receiving treatment, the benefits of treatment outweigh the treatment risks at this time. Risks of suicidal ideation , behavioral changes, dystonia, movement disorders, cardiac conduction changes , serotonin syndrome, metabolic risks were among some of the risks discussed.
[2018-10-05] MEDS ORDERED: Nicotine GUM* 2 MG PO PRN (10:54)
[2018-10-05] MEDS: Nicotine PATCH 14 MG/24 HR* PATCH TRANSDERM SCH (11:04)
[2018-10-05] MEDS: Vitamin THERAPEUTIC TAB PO SCH (11:04)
[2018-10-05] MEDS: CMC:FluvoxaMINE (NF) 50 MG TAB PO SCH (11:06)
[2018-10-05] MEDS: Naproxen TAB* 250 MG PO PRN (11:07)
--- NOTE | 2018-10-05 15:03 | CONS ---
CC: Dr. Chely Verdugo; Dr. Alaniz * CONSULTATION REPORT: DATE OF CONSULT: 10/05/18 PRIMARY CARE PROVIDER: Dr. Chely Verdugo. MY ATTENDING WHILE IN THE HOSPITAL: Dr. Olga Chavis. CONSULTING PROVIDER: Dr. Alaniz. REASON FOR CONSULT: Night sweats, weight loss, right ankle pain. HISTORY OF PRESENT ILLNESS: Ms. Mayers is a 28-year-old female with past medical history significant for anxiety, depression, obesity, and a long history of pain in her right ankle dating back to her childhood with several surgeries including an ORIF after a nontraumatic fracture. The patient has had previous evaluations of her ankle with MRIs and CT scans. The patient also had pathology sent from her ankle, which showed no atypical cells except for a neuroma. The patient had no fevers or chills. The patient was described to have night sweats; however, the patient further clarifies these that she just sweats all the time and has since she was a child and has noticed no increase in this symptom. The patient has lost 50 pounds since last December. The patient currently weighs approximately 300 pounds. States that she was on disability until that time and while she was on disability she felt very poorly about herself and felt that she ate to cope with this. After she returned to work, she feels like she has eaten less and feels better and has had much more activity and that the weight loss is not unexpected for her. The patient is admitted to the BSU for intrusive thoughts including suicidal ideation. The patient states that she is dealing with this and this is improving. The patient denies chest pain, shortness of breath, cough, dysuria, urinary frequency, abdominal pain. The patient has loose bowel movements without blood frequently. The patient has no family history of colon cancer or other early cancers. The patient had a Pap smear in 2018, which showed no malignancy. The patient follows with the pain clinic for the pain in her ankle, which she describes as throbbing from her ankle down and then sharp and in line from her knee down her prater to her first toe. There was discussion of a femoral nerve block, but this has not been done at the time of the patient's admission to the behavioral services unit. The patient was scheduled for an MRI this Wednesday to evaluate her ankle anatomy postoperatively. PAST MEDICAL HISTORY: Anxiety, depression, obesity, right lower extremity pain , right ankle fracture. PAST SURGICAL HISTORY: Right ankle ORIF, right ankle tendon repair, right ankle removal of hardware, tonsillectomy, and adenoidectomy. MEDICATIONS AT HOME: 1. Nexplanon. 2. Gabapentin 100 mg p.o. t.i.d. 3. BuSpar 15 mg p.o. daily. 4. Naproxen 500 mg p.o. daily as needed. 5. Vitamin C 200 mg p.o. daily. 6. Prozac 40 mg p.o. daily. ALLERGIES: None. FAMILY HISTORY: The patient's father has diabetes and high blood pressure and is alive. The patient's mother is alive and well. The patient's sister has prediabetes. The patient's maternal grandfather of emphysema. The patient 's maternal grandmother of old age. The patient's paternal grandmother of a brain aneurysm at 71. The patient's paternal grandfather of heart attack at 52. SOCIAL HISTORY: The patient smokes 3 to 4 cigarettes a day. The patient smokes marijuana daily. The patient drinks occasional alcohol. The patient works at the [employer]. The patient has never and has no children. The patient's surrogate decision maker will be her healthcare proxy, Vicky Hernández. REVIEW OF SYSTEMS: A 14-point review of systems was reviewed and is negative except as above in the HPI. PHYSICAL EXAM: General: The patient is a 28-year-old female, who appears stated age and sitting comfortably in bed, in no acute distress. Vital Signs: Temperature 97.9, pulse rate 75, respiratory rate 16, oxygen saturation 95% on room air, blood pressure 121/70. HEENT: Head normocephalic, atraumatic. Sclerae anicteric. No conjunctival injection. Nasal mucosa moist. Oral mucosa moist. No oropharyngeal erythema, discharge, or exudate. Neck: Supple, nontender. No lymphadenopathy. No carotid bruits auscultated. No JVD. Cardiac: Regular rate and rhythm. No clicks, murmurs, gallops, or rubs. Pulses are 2+ in the bilateral dorsalis pedis, posterior tibialis, and radial areas. Respiratory: Clear to auscultation bilaterally. No wheezes, rales, or rhonchi. Good air exchange bilaterally. Abdomen: Soft, nontender, nondistended. Bowel sounds present and normoactive in all 4 quadrants. No hepatosplenomegaly. No abdominal bruits auscultated. No hepatojugular reflux. Genitourinary: No suprapubic or CVA tenderness. Skin: Clean, dry, and intact. No rash. Neuro: Cranial nerves II through XII intact. No focal deficits. Alert and oriented x3. Psychiatric: Pleasant and cooperative. DIAGNOSTIC STUDIES/LAB DATA: White blood cell count 16.8, neutrophils 10.5, platelet count 440. Sodium 139, potassium 4.0, chloride 106, carbon dioxide 26 , anion gap 7, BUN 10, creatinine 0.66, glucose 102, calcium 9.4. Bilirubin 0.3 , AST 15, ALT 20, alkaline phosphatase 71. Protein 7.4, albumin 4.3, globulin 3.1. TSH 5.18. Beta hCG less than 0.6. Urine shows 1+ blood, trace leukocyte esterase, 1+ red blood cells, positive squamous epithelial cells. Toxicology shows presumptive positive cannabinoids. No studies. ASSESSMENT AND PLAN: Impression: Ms. Mayers is a 28-year-old female with past medical history significant for anxiety, depression, obesity, and a chronic history of her right lower extremity stretching back to her childhood with a right lower extremity fracture, nontraumatic, when she was 26, who is currently admitted to the behavioral services unit for control of her anxiety, depression, and possible obsessive-compulsive disorder. She was found to have leukocytosis as well as weight loss and possible night sweats. 1. Weight loss, sweating, leukocytosis, ankle injury. The patient states that she was previously evaluated for leukemia when she was a child due to pain in her right lower extremity. The patient states that her right lower extremity has been evaluated with multiple MRIs in the past without any concern for malignant bone defect. She has never had bone density testing to her knowledge. Given the constellation of possible B symptoms for malignancy as well as unprovoked fracture of the right lower extremity, we will expedite the patient's right lower extremity MRI to assess for any bony defects that may be present or expanding. Based on the patient's history, however, the night sweats and weight loss appear much more benign with sweating being present at all times and the weight loss being related to lifestyle change. The patient will have a repeat CBC in the morning. The patient's leukocytosis is likely related to stress from being admitted to the BSU; however, it may be related to underlying malignancy. We will repeat it in the morning. The patient did have a previously elevated CBC without an active infection in 2014. Evaluation for the patient's leukocytosis may involve a hematology consult if it is persistent and no other cause is found. 2. Right lower extremity pain. Continue the patient's gabapentin, Tylenol, and naproxen. The patient should follow up with Pain Management outpatient. 3. Anxiety, depression, obsessive-compulsive disorder. Management per Psychiatry. The patient denies suicidal or homicidal ideation at this time. 4. DVT prophylaxis: Ambulation. 5. FEN: The patient will have a regular unrestricted diet. TIME SPENT: Approximately 60 minutes was spent on this consultation. The plan was discussed with my attending, Dr. Olga Chavis, and she is in agreement. Thank you very much for this consultation. We will continue to follow along with this patient. KIARRA BRUNNER [id number]/CPS #: [id number] NEAL
[2018-10-05] MEDS: busPIRone TAB* 10 MG PO SCH (21:01)
[2018-10-05] MEDS: Gabapentin CAP(*) 300 MG PO SCH (21:01)
[2018-10-05] MEDS: Acetaminophen TAB* 325 MG PO PRN (21:01)
[2018-10-05] MEDS: Nicotine Patch Removal NOTE PATCH OFF SCH (21:03)
[2018-10-05] MEDS: diPHENhydraMINE PO* 50 MG PO PRN (22:25)
[2018-10-06 09:04] LABS: ABS Basophils 0.1 10^3/ul (0-0.2); ABS Eosinophils 0.3 10^3/ul (0-0.6); ABS Monocytes 0.7 10^3/ul (0-0.8); ABS Neutrophils 8.4 10^3/ul (1.5-7.7); ABS Nucleated RBC 0 10^3/ul; Eosinophil % 2.5 %; Hematocrit 42 % (35-47); Hemoglobin 13.8 g/dL (12.0-16.0); Lymphocyte % 24.1 %; Mean Corpuscular HGB Conc 33 g/dL (31-36); Mean Corpuscular Hemoglobin 28 pg (27-31); Mean Corpuscular Volume 84 fL (80-97); Mean Platelet Volume 7.9 fL (7.4-10.4); Nucleated Red Blood Cells % 0.1; Platelet Count 395 10^3/uL (150-450); Red Blood Count 4.94 10^6 /uL (3.70-4.87); Red Cell Distribution Width 15 % (10.5-15); White Blood Count 12.6 10^3/uL (3.5-10.8)
[2018-10-06] MEDS: CMC:FluvoxaMINE (NF) 50 MG TAB PO SCH (09:04)
[2018-10-06] MEDS: Naproxen TAB* 250 MG PO PRN (09:04)
[2018-10-06] MEDS: busPIRone TAB* 10 MG PO SCH (09:04)
[2018-10-06] MEDS: Vitamin THERAPEUTIC TAB PO SCH (09:05)
[2018-10-06] MEDS: Gabapentin CAP(*) 300 MG PO SCH ×3 (09:05→21:00)
[2018-10-06] MEDS: Nicotine PATCH 14 MG/24 HR* PATCH TRANSDERM SCH (09:05)
[2018-10-06 09:14] LABS: HDL Cholesterol 35.2 mg/dL
--- NOTE | 2018-10-06 11:20 | PN ---
Subjective - Subjective Date of Service: 10/06/18 Service Type: [id number] Hosp care 35 min high complexity Subjective: Nursing Report: Patient was visible on unit, Slept overnight without incident. Attending group activities. CC: " I am a little better Patient was seen and evaluated today. The patient reported she feels safe on the unit and is interacting with peers. She engaged in yoga this morning. She reported hearing less voices today and thinks that is it due to having to engage in activities and interact with others. She denied fever, nausea, vomiting. She reported having an adequate appetite and sleep. The patient reports attending and participating in day groups. Per nursing no behavioral issues or overnight events reported. Patient reported that she is tolerating medications without side effects. Objective - General Observations Appearance: Neat Appears Stated Age: Yes Stature: Overweight Posture: Slumped Eye Contact: Average Behavior/Activity: WNL - Interaction Observations Attitude Towards Examiner: Cooperative Stated Mood: Anxious Affect: Blunted Speech Pattern/Tone: Clear Thought Process: Coherent Thought Content: Obsessional Thought Process: Lethality: Suicidal Planning Hallucination Type: Auditory Delusion Type: None - Cognitive Function Orientation: A&O x 4 Level of Consciousness: Awake Cognition: WNL - Medication Compliance Cooperative with Inpatient Medication Regimen: Yes - Group Participation Participates in Group Activities: Yes Assessment - Assessment Merits Inpatient Hospitalization: For Immediate Safety Clinical Impression: 28 year old female with a history of depression presented to the [facility] with commanding auditory hallucinations telling her to kill herself Plan - Plan Treatment Plan: Name: ANDREA TOWNSEND Birthdate: 1990 [id number] #Q30 and Staff pass # The patient requires inpatient admission at this time to assure safety, receive treatment and work toward stabilization. # WBC trending down B-HCG was ordered and results are negative. # Obtain collateral information from family and therapist once release is signed. # Collaboration with Social Work to assist with disposition and after care. #MMPI # Increase fluvoxamine 150mg daily for OCD. Will consider clomipramine if treatment resistant. # Increase buspar to 15mg BID Medicine consult to address medical issues # Contact family namely her father to remove access to firearms and stockpile of medications Tobacco use disorder: nicotine supplement offered and put in place. #Goals before discharge include: Decrease intrusive thoughts. Continued Medication Management: Continue Outpt Medication Medications: Current Medications Acetaminophen (Tylenol Tab*) 650 mg PO Q4H PRN PRN Reason: PAIN or TEMP > 101 F Last Admin: 10/05/18 21:01 Dose: 650 mg Al Hydrox/Mg Hydrox/Simethicone (Maalox Plus*) 30 ml PO Q4H PRN PRN Reason: INDIGESTION Buspirone HCl (Buspar Tab *) 15 mg PO BID [facility] Diphenhydramine HCl (Benadryl Po*) 50 mg PO BEDTIME PRN PRN Reason: INSOMNIA Last Admin: 10/05/18 22:25 Dose: 50 mg Fluvoxamine Maleate (Luvox (Nf)) 150 mg PO DAILY [facility] Gabapentin (Neurontin Cap(*)) 300 mg PO TID [facility] Last Admin: 10/06/18 09:05 Dose: 300 mg Multivitamins (Theragran Tab*) 1 tab PO DAILY [facility] Last Admin: 10/06/18 09:05 Dose: 1 tab Naproxen (Naprosyn Tab*) 500 mg PO DAILY PRN PRN Reason: PAIN Last Admin: 10/06/18 09:04 Dose: 500 mg Nicotine (Nicotine Patch 14 Mg/24 Hr*) 1 patch TRANSDERM DAILY [facility] Last Admin: 10/06/18 09:05 Dose: Not Given Nicotine Polacrilex (Nicotine Gum*) 2 mg PO Q2H PRN PRN Reason: CRAVING Pharmacy Profile Note (Nicotine Patch Removal Note*) 1 note PATCH OFF 2100 [facility] Last Admin: 10/05/18 21:03 Dose: Not Given - Discharge Plan Discharge Plan: Inpatient Hospitalization
[2018-10-06] MEDS ORDERED: FluvoxaMINE (NF) 50 MG TAB PO ONE (11:30)
--- NOTE | 2018-10-06 14:51 | PN ---
Subjective Date of Service: 10/06/18 Interval History: Patient feeling well today. She was resting comfortably in her room in [facility]. She endorses that her chronic pain to her right ankle is unchanged today. She denies fever/chills, dyspnea, chest pain, dysuria and hematuria. No SI. Objective Active Medications: Acetaminophen (Tylenol Tab*) 650 mg PO Q4H PRN PRN Reason: PAIN or TEMP > 101 F Last Admin: 10/05/18 21:01 Dose: 650 mg Al Hydrox/Mg Hydrox/Simethicone (Maalox Plus*) 30 ml PO Q4H PRN PRN Reason: INDIGESTION Buspirone HCl (Buspar Tab *) 15 mg PO BID [facility] Diphenhydramine HCl (Benadryl Po*) 50 mg PO BEDTIME PRN PRN Reason: INSOMNIA Last Admin: 10/05/18 22:25 Dose: 50 mg Fluvoxamine Maleate (Fluvoxamine (Nf)) 150 mg PO DAILY [facility] Gabapentin (Neurontin Cap(*)) 300 mg PO TID [facility] Last Admin: 10/06/18 14:38 Dose: 300 mg Multivitamins (Theragran Tab*) 1 tab PO DAILY [facility] Last Admin: 10/06/18 09:05 Dose: 1 tab Naproxen (Naprosyn Tab*) 500 mg PO DAILY PRN PRN Reason: PAIN Last Admin: 10/06/18 09:04 Dose: 500 mg Nicotine (Nicotine Patch 14 Mg/24 Hr*) 1 patch TRANSDERM DAILY [facility] Last Admin: 10/06/18 09:05 Dose: Not Given Nicotine Polacrilex (Nicotine Gum*) 2 mg PO Q2H PRN PRN Reason: CRAVING Pharmacy Profile Note (Nicotine Patch Removal Note*) 1 note PATCH OFF 2100 [facility] Last Admin: 10/05/18 21:03 Dose: Not Given Vital Signs - 8 hr 10/06/18 10/06/18 10/06/18 09:05 11:41 12:44 Respiratory 16 16 16 Rate 10/06/18 14:38 Respiratory 16 Rate Oxygen Devices in Use Now: None Appearance: Obese, white female, laying comfortably in bed, appearing in NAD Eyes: No Scleral Icterus, PERRLA Ears/Nose/Mouth/Throat: Mucous Membranes Moist Neck: NL Appearance and Movements; NL JVP Respiratory: Symmetrical Chest Expansion and Respiratory Effort, Clear to Auscultation Cardiovascular: NL Sounds; No Murmurs; No JVD, RRR Abdominal: - - Abdomen soft, nontender, nondistended Extremities: No Edema, No Clubbing, Cyanosis, - - ROM of bilateral ankles wnl, minimal tenderness to palpation to medial aspect of right ankle Skin: No Rash or Ulcers Neurological: Alert and Oriented x 3, NL Muscle Strength and Tone, - - Psych: not responding to internal stimuli, no SI or HI Result Diagrams: 10/06/18 08:48 10/04/18 21:46 Microbiology and Other Data: Microbiology 10/04/18 21:03 Urine Culture - Final Urine Assess/Plan/Problems-Billing Assessment: 28 yo female with PMHx anxiety and depression presents to the ED voluntarily c/ o hearing voices telling her to kill herself. She is admitted to [facility] for treatment of auditory hallucinations and depression. At admission, found to have leukocytosis and hospital medicine was consulted for evaluation. - Patient Problems (1) Leukocytosis Code(s): D72.829 - ELEVATED WHITE BLOOD CELL COUNT, UNSPECIFIED SNOMED Code(s) : 562864947 Comment: -WBC 16.8 ->12.6; pathology notes leukocytosis is likely reactive in lab report -urine culture without growth, CXR negative, afebrile -leukocytosis in 2015 as well -likely related to stress; unlikely to be malignancy given improvement in leukocytosis and CBC differential -at discharge, recommend follow up CBC with her PCP; if leukocytosis continues a hematology referral may be in order (2) Obesity Code(s): E66.9 - OBESITY, UNSPECIFIED SNOMED Code(s): 919865298 Comment: -A1c 5.4 indicating good glycemic control -triglycerides and LDL minimally elevated, though patient has recently actively begun improving her diet, follow up with PCP at discharge (3) Right ankle pain Code(s): M25.571 - PAIN IN RIGHT ANKLE AND JOINTS OF RIGHT FOOT SNOMED Code(s) : 064747849 Comment: -patient with history of right ankle surgery and has had chronic pain since the procedures -ankle MRI demonstrates 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 and post surgical changes; no acute findings; these findings are overall similar to chronic tears on MRI in 2017 -recommend follow up with her orthopedic surgeon at discharge; it is of note that her orthopedic surgeon had planned to have an outpatient MRI scheduled for tomorrow and this will therefore no longer be necessary -likely her chronic pain will improve with improvement of her depression (4) Auditory hallucinations Code(s): R44.0 - AUDITORY HALLUCINATIONS SNOMED Code(s): 97626015 Comment: -mgmt per psychiatry (5) Depression Code(s): F32.9 - MAJOR DEPRESSIVE DISORDER, SINGLE EPISODE, UNSPECIFIED SNOMED Code(s): 70225354 Comment: -mgmt per psychiatry (6) DVT prophylaxis Code(s): QGI9514 - SNOMED Code(s): 108361068 Comment: -ambulating (7) Full code status Code(s): Z78.9 - OTHER SPECIFIED HEALTH STATUS SNOMED Code(s): 895739999 Status and Disposition: Patient is medically optimized and I suggest outpatient follow up as discussed above. We will no longer follow along with this patient at this time, but please feel free to call with any new concerns or further questions. Disposition per psychiatry.
[2018-10-06] MEDS: busPIRone TAB* 15 MG PO SCH (21:00)
[2018-10-06] MEDS ORDERED: busPIRone TAB* 15 MG PO SCH (21:00)
[2018-10-06] MEDS: diPHENhydraMINE PO* 50 MG PO PRN (21:01)
[2018-10-06] MEDS: Nicotine Patch Removal NOTE PATCH OFF SCH (21:30)
[2018-10-07] MEDS: busPIRone TAB* 15 MG PO SCH ×2 (08:20→20:30)
[2018-10-07] MEDS: Vitamin THERAPEUTIC TAB PO SCH (08:20)
[2018-10-07] MEDS: Gabapentin CAP(*) 300 MG PO SCH ×3 (08:20→20:29)
[2018-10-07] MEDS: Acetaminophen TAB* 325 MG PO PRN (08:21)
[2018-10-07] MEDS: FluvoxaMINE (NF) 50 MG TAB PO SCH (08:45)
[2018-10-07] MEDS ORDERED: FluvoxaMINE (NF) 50 MG TAB PO SCH (09:00)
[2018-10-07] MEDS: Nicotine PATCH 14 MG/24 HR* PATCH TRANSDERM SCH (10:30)
--- NOTE | 2018-10-07 11:49 | PN ---
Subjective - Subjective Date of Service: 10/07/18 Service Type: [id number] Hosp care 35 min high complexity Subjective: Nursing Report: Patient was visible on unit, no chemical restraints or PRNs. Slept overnight without incident. Not Attending group activities. CC: "The voice is silent Patient was seen and evaluated today in the common room. She was doing yoga in the green room in the morning. She describes that her thoughts can be distressing and describes walking out side and seeing a speeding car and had the a intrusive thought of jumping in front of the car and said that she was able to think past that thought and said she knew that she didnt want to do that. She reported having a dry nose overnight. The patient reported she feels safe on the unit and is interacting with peers. Not attending and participating in day groups. Patient reported that she is tolerating medications without side effects. Objective - General Observations Appearance: Neat Appears Stated Age: Yes Stature: Overweight Posture: Slumped Eye Contact: Average Behavior/Activity: WNL - Interaction Observations Attitude Towards Examiner: Cooperative Stated Mood: Anxious Affect: Blunted Speech Pattern/Tone: Clear Thought Process: Coherent Perception: WNL Thought Content: Obsessional Hallucination Type: None Delusion Type: None - Cognitive Function Orientation: A&O x 4 Level of Consciousness: Awake Cognition: WNL - Medication Compliance Cooperative with Inpatient Medication Regimen: Yes - Group Participation Participates in Group Activities: No Assessment - Assessment Clinical Impression: 28 year old female with a history of depression presented to the [facility] with commanding auditory hallucinations telling her to kill herself Plan - Plan Treatment Plan: Name: ANDREA TOWNSEND Birthdate: 1990 [id number] #Q30 and Staff pass # The patient requires inpatient admission at this time to assure safety, receive treatment and work toward stabilization. # Collaboration with Social Work to assist with disposition and after care. # MMPI # Continue fluvoxamine 150mg daily for OCD. Will consider clomipramine if treatment resistant. # Continue buspar to 15mg BID # encourage to attend groups Medicine consult to address medical issues # Contact family namely her father to remove access to firearms and stockpile of medications Tobacco use disorder: Nicotine supplement offered and put in place. #Goals before discharge include: Decrease intrusive thoughts and anxiety. Sodium 139 mmol/L (135-145) 10/04/18 21:46 Potassium 4.0 mmol/L (3.5-5.0) 10/04/18 21:46 BUN 10 mg/dL (6-24) 10/04/18 21:46 Creatinine 0.66 mg/dL (0.51-0.95) 10/04/18 21:46 Hemoglobin A1c 5.4 % (4.0-5.6) 10/06/18 08:48 Calcium 9.4 mg/dL (8.6-10.3) 10/04/18 21:46 AST 15 U/L (13-39) 10/04/18 21:46 ALT 18 U/L (7-52) 10/04/18 21:46 Triglycerides 172 mg/dL 10/06/18 08:48 Cholesterol 174 mg/dL 10/06/18 08:48 LDL Cholesterol 104 mg/dL 10/06/18 08:48 Vital Signs Temp Pulse Resp BP Pulse Ox 96.8 F 62 16 110/55 98 10/07/18 07:06 10/07/18 07:06 10/07/18 12:52 10/07/18 07:06 10/07/18 07:06 Continued Medication Management: Continue Outpt Medication Medications: Current Medications Acetaminophen (Tylenol Tab*) 650 mg PO Q4H PRN PRN Reason: PAIN or TEMP > 101 F Last Admin: 10/07/18 08:21 Dose: 650 mg Al Hydrox/Mg Hydrox/Simethicone (Maalox Plus*) 30 ml PO Q4H PRN PRN Reason: INDIGESTION Buspirone HCl (Buspar Tab *) 15 mg PO BID [facility] Last Admin: 10/07/18 08:20 Dose: 15 mg Diphenhydramine HCl (Benadryl Po*) 50 mg PO BEDTIME PRN PRN Reason: INSOMNIA Last Admin: 10/06/18 21:01 Dose: 50 mg Fluvoxamine Maleate (Fluvoxamine (Nf)) 150 mg PO DAILY [facility] Last Admin: 10/07/18 08:45 Dose: 150 mg Gabapentin (Neurontin Cap(*)) 300 mg PO TID [facility] Last Admin: 10/07/18 08:20 Dose: 300 mg Multivitamins (Theragran Tab*) 1 tab PO DAILY [facility] Last Admin: 10/07/18 08:20 Dose: 1 tab Naproxen (Naprosyn Tab*) 500 mg PO DAILY PRN PRN Reason: PAIN Last Admin: 10/06/18 09:04 Dose: 500 mg Nicotine (Nicotine Patch 14 Mg/24 Hr*) 1 patch TRANSDERM DAILY [facility] Last Admin: 10/07/18 10:30 Dose: Not Given Nicotine Polacrilex (Nicotine Gum*) 2 mg PO Q2H PRN PRN Reason: CRAVING Pharmacy Profile Note (Nicotine Patch Removal Note*) 1 note PATCH OFF 2099 [facility] Last Admin: 10/06/18 21:30 Dose: Not Given Sodium Chloride (Sodium Chloride 0.65% Nasal [place]*) 1 spray BOTH NARES Q4H PRN PRN Reason: DRY SKIN - Discharge Plan Discharge Plan: Inpatient Hospitalization
[2018-10-07] MEDS: Saline NASAL SPRAY 0.65%* BTL BOTH NARES PRN (20:31)
[2018-10-07] MEDS: diPHENhydraMINE PO* 50 MG PO PRN (20:32)
[2018-10-07] MEDS: Nicotine Patch Removal NOTE PATCH OFF SCH (21:49)
[2018-10-08] MEDS: Gabapentin CAP(*) 300 MG PO SCH ×3 (08:30→19:57)
[2018-10-08] MEDS: Vitamin THERAPEUTIC TAB PO SCH (08:30)
[2018-10-08] MEDS: FluvoxaMINE (NF) 50 MG TAB PO SCH (08:31)
[2018-10-08] MEDS: busPIRone TAB* 15 MG PO SCH ×2 (08:31→19:51)
[2018-10-08] MEDS: Naproxen TAB* 250 MG PO PRN (08:32)
[2018-10-08] MEDS: Nicotine PATCH 14 MG/24 HR* PATCH TRANSDERM SCH (08:33)
[2018-10-08] MEDS: Saline NASAL SPRAY 0.65%* BTL BOTH NARES PRN ×2 (08:33→19:53)
[2018-10-08] MEDS: Acetaminophen TAB* 325 MG PO PRN (19:52)
[2018-10-08] MEDS: diPHENhydraMINE PO* 50 MG PO PRN (19:52)
[2018-10-08] MEDS: Nicotine Patch Removal NOTE PATCH OFF SCH (19:58)
[2018-10-09 09:00] VITALS: BP 137/81
[2018-10-09] MEDS: busPIRone TAB* 15 MG PO SCH ×2 (09:01→20:11)
[2018-10-09] MEDS: CMC:FluvoxaMINE (NF) 50 MG TAB PO SCH (09:02)
[2018-10-09] MEDS: Gabapentin CAP(*) 300 MG PO SCH ×3 (09:02→20:11)
[2018-10-09] MEDS: Nicotine PATCH 14 MG/24 HR* PATCH TRANSDERM SCH (09:03)
[2018-10-09] MEDS: Acetaminophen TAB* 325 MG PO PRN ×2 (09:03→20:14)
[2018-10-09] MEDS: Naproxen TAB* 250 MG PO PRN (09:04)
[2018-10-09] MEDS: Vitamin THERAPEUTIC TAB PO SCH (09:04)
[2018-10-09] MEDS: Saline NASAL SPRAY 0.65%* BTL BOTH NARES PRN (09:04)
--- NOTE | 2018-10-09 16:49 | PN ---
Subjective - Subjective Date of Service: 10/08/18 Service Type: [id number] Hosp care 15 min low complexity Subjective: Margaret appears to be doing well. No complains or concerns voiced. Tolerating her meds well. Denies mood, thoughts or perceptual problems. Also denies any SI , HI or psychosis. Objective - General Observations Appearance: Well Groomed Stature: Overweight Posture: WNL Eye Contact: Average Behavior/Activity: WNL - Interaction Observations Attitude Towards Examiner: Cooperative Stated Mood: Euthymic Affect: Full Speech Pattern/Tone: Clear Thought Process: Coherent Perception: WNL Thought Content: WNL Hallucination Type: None Delusion Type: None - Cognitive Function Orientation: A&O x 4 Level of Consciousness: Awake, Alert, Appropriate Cognition: WNL Estimated Intelligence: Normal Insight: WNL Judgment Within Normal Limits: Yes Ability to Make Reasonable Decisions: Mildly Impaired - Medication Compliance Cooperative with Inpatient Medication Regimen: Yes - Group Participation Participates in Group Activities: Yes Assessment - Assessment Merits Inpatient Hospitalization: Consolidate Improvements, Pending Safe DC Plan Clinical Impression: 28 year old female with a history of depression presented to the [facility] with commanding auditory hallucinations telling her to kill herself Plan - Plan Treatment Plan: Name: MARGARET TOWNSEND Birthdate: 1990 [id number] #Q30 and Staff pass # The patient requires inpatient admission at this time to assure safety, receive treatment and work toward stabilization. # Collaboration with Social Work to assist with disposition and after care. # MMPI # Continue fluvoxamine 150mg daily for OCD. Will consider clomipramine if treatment resistant. # Continue buspar to 15mg BID # encourage to attend groups Medicine consult to address medical issues # Contact family namely her father to remove access to firearms and stockpile of medications Tobacco use disorder: Nicotine supplement offered and put in place. #Goals before discharge include: Decrease intrusive thoughts and anxiety. Sodium 139 mmol/L (135-145) 10/04/18 21:46 Potassium 4.0 mmol/L (3.5-5.0) 10/04/18 21:46 BUN 10 mg/dL (6-24) 10/04/18 21:46 Creatinine 0.66 mg/dL (0.51-0.95) 10/04/18 21:46 Hemoglobin A1c 5.4 % (4.0-5.6) 10/06/18 08:48 Calcium 9.4 mg/dL (8.6-10.3) 10/04/18 21:46 AST 15 U/L (13-39) 10/04/18 21:46 ALT 18 U/L (7-52) 10/04/18 21:46 Triglycerides 172 mg/dL 10/06/18 08:48 Cholesterol 174 mg/dL 10/06/18 08:48 LDL Cholesterol 104 mg/dL 10/06/18 08:48 Vital Signs Temp Pulse Resp BP Pulse Ox 96.8 F 62 16 110/55 98 10/07/18 07:06 10/07/18 07:06 10/07/18 12:52 10/07/18 07:06 10/07/18 07:06 Continued Medication Management: Continue Outpt Medication Medications: Current Medications Acetaminophen (Tylenol Tab*) 650 mg PO Q4H PRN PRN Reason: PAIN or TEMP > 101 F Last Admin: 10/09/18 09:03 Dose: 650 mg Al Hydrox/Mg Hydrox/Simethicone (Maalox Plus*) 30 ml PO Q4H PRN PRN Reason: INDIGESTION Buspirone HCl (Buspar Tab *) 15 mg PO BID [facility] Last Admin: 10/09/18 09:01 Dose: 15 mg Diphenhydramine HCl (Benadryl Po*) 50 mg PO BEDTIME PRN PRN Reason: INSOMNIA Last Admin: 10/08/18 19:52 Dose: 50 mg Fluvoxamine Maleate (Fluvoxamine (Nf)) 200 mg PO DAILY [facility] Last Admin: 10/09/18 09:02 Dose: 200 mg Gabapentin (Neurontin Cap(*)) 300 mg PO TID [facility] Last Admin: 10/09/18 14:21 Dose: 300 mg Multivitamins (Theragran Tab*) 1 tab PO DAILY [facility] Last Admin: 10/09/18 09:04 Dose: 1 tab Naproxen (Naprosyn Tab*) 500 mg PO DAILY PRN PRN Reason: PAIN Last Admin: 10/09/18 09:04 Dose: 500 mg Nicotine (Nicotine Patch 14 Mg/24 Hr*) 1 patch TRANSDERM DAILY [facility] Last Admin: 10/09/18 09:03 Dose: Not Given Nicotine Polacrilex (Nicotine Gum*) 2 mg PO Q2H PRN PRN Reason: CRAVING Pharmacy Profile Note (Nicotine Patch Removal Note*) 1 note PATCH OFF [address] [facility] Last Admin: 10/08/18 19:58 Dose: Not Given Sodium Chloride (Sodium Chloride 0.65% Nasal [place]*) 1 spray BOTH NARES Q4H PRN PRN Reason: DRY SKIN Last Admin: 10/09/18 09:04 Dose: 1 spray - Discharge Plan Discharge Plan: Outpatient Follow Up Outpatient Program: [facility]
[2018-10-09] MEDS: diPHENhydraMINE PO* 50 MG PO PRN (20:14)
[2018-10-09] MEDS: Nicotine Patch Removal NOTE PATCH OFF SCH (21:24)
--- NOTE | 2018-10-10 07:57 | DS ---
Subjective - Subjective Service Types: 51[address] [facility] complex over 30 min Discharge Date: 10/10/18 Subjective: CC: " I am ready to leave" Patient reported that she feels like herself again. She said that over the weekend she did not have intrusive bothersome thoughts. She looks forward to returning back to work. Justification for admission: Immediate Safety. CC " I hear a voice that bothers me" The patient was brought to [facility] by herself after hearing a voice for the last 6 weeks telling her methods to end her life. She reported being distressed by these thoughts. The ideas that she thought about include knowing where her fathers guns are located to kills herself. Once having these thoughts she feels bad about it causing her anxiety. She expressed this to her therapist who advised her to come to the hospital. 2 weeks ago her prozac was increased from 20mg to 40mg daily by her primary care doctor. Many years she reported counting and checking many times to provide relief of anxiety. She mentioned being at her doctors office and everyone was told to evacuate due to a gas leak. She was determined to leave the building as said that if she wanted to she would have stayed. She reported having access to firearms at her fathers and knows how to access the safe where they are located. She reported having a stockpile of medication. She reported decreased sleep and wakes up early. She lost 50lbs since December. She reported having night sweats. The patient denied homicidal ideation intent or plan. The patient denied visual hallucinations. MDD She reported feeling sad and depressed and has diminished interests which were found to be enjoyable in the past. Endorsed feelings of hopelessness or worthless. Reported 50lbs weight loss since December. Endorsed interruption of sleep or feeling tired throughout the day. Reported loss of energy or lack of motivation to complete tasks and decreased concentration. Anxiety Endorsed having symptoms of anxiety such as having times where heart feels that it is beating out of chest , sweaty palms, or shallow breathing. Endorsed feeling restless, high strung, or worrying too much most of the time. Bipolar Denied symptoms of alcira such as having many ideas at once. Denied increased talkativeness where no one can interrupt. Denied feeling irritable most of the time while having an persistent abundance of energy most of the day without the use of energy drinks, stimulants, or recreational drug use. Denied an increase in intensity in goal directed activities. Denied having the decreased need to sleep for days , having prolonged elevated heighted mood , or feeling on top of the world. Denied impulsive risky sexual encounters. Denied spending money recklessly , going on spending sprees wiping out savings. Denied impulsively traveling out of town or country, having super larsen, and unrealistic wealth or fame. Psychosis Does not endorse seeing things other people do not see. Denied feeling that TV is making references. Denied feeling that people are spying , following , or reading their thoughts. Phobias: Patient denied having excessive fear of a particular thing or situation. Eating disorders: Patient denied having excessive eating habits or feelings of guilt after eating. Denied repeated episodes of self induced vomiting after eating. PTSD Denied flashbacks, nightmares and avoidance of a prior traumatic event. PAST PSYCHIATRIC HISTORY: Prior Diagnosis : Major depressive Disorder, Generalized Anxiety Disorder History of past Psychiatric Hospitalizations: No prior psychiatric admission. History of past suicide/homicide attempts : Denied past suicide attempts. Denied past homicidal incidents. Outpatient follow-up: PCP and Psychologist Jose Yang Medications: Past trials of medications include prozac 40mg daily and buspar 15mg BID taking for 6 months. Guardianship: None. FAMILY HISTORY: - Suicide: Denied family history of suicide. - Mental illness: Denied a history of mental health in immediate family members. - Substance abuse: Denied substance abuse among family members. SUBSTANCE ABUSE HISTORY: Denied using alcohol, heroin and cocaine other illicit substances. Denied abusing pills not prescribed . Denied past Substance abuse treatment. - EtOH: Denied using recently or in the past. - Tobacco: Smokes 1/2 PPD - Cannabis: Uses daily - Heroin: Denied using recently or in the past. - Cocaine: Denied using recently or in the past. - Substance abuse treatment: Denied past substance abuse treatment SOCIAL HISTORY: Denied physical and or sexual abuse Born and raised in [place], [place] by both parents. She is single no children and lives in a carriage house with her cousins in [place] She works at the [employer] in [place]. - Legal history: Denied - service history: Denied PAST MEDICAL HISTORY: Right fibula fracture. Bacterial vaganosis Dx and treated a week ago. - Allergies: Bleach and chlorine Physical Exam: Please see ED note Mental Status Exam on Admission APPEARANCE : 28 year old female who appears stated age. Obese, appears to have fair hygiene and grooming. BEHAVIOR: Cooperative , calm EYE CONTACT: Fair PSYCHOMOTOR ACTIVITY: No psychomotor agitation or retardation. MOVEMENTS: No abnormal movements observed. SPEECH : Normal rate, rhythm, volume and tone. MOOD : "Anxious " AFFECT : Type is anxious Range is full , Mood congruent, Stable THOUGHT PROCESS: formulated and organized in a logical, linear goal directed manner. No flight of ideas , neologism (made up words) , perseveration , tangential , loose associations , or circumstantiality. THOUGHT CONTENT: preoccupation about suicidal thoughts PERCEPTION: Current auditory hallucinations. Doesnt appear to be responding to internal cues. No evidence of depersonalization , de-realization, or illusions SUICIDALITY Recent suicidal ideation HOMICIDALITY Denied homicidal ideation, intent or plan. Insight/judgment: Fair insight and judgment ORIENTATION: Oriented to self, location, and time. Diagnosis on Admission: Obsessive Compulsive Disorder. Tobacco use disorder. Cannabis use disorder Diagnosis on Discharge: Obsessive Compulsive Disorder. Tobacco use disorder. Cannabis use disorder Condition at the time of discharge: At the time of discharge patient showed improvement of sleep and appetite. The patient was not a danger to self or others. The patient denied suicidal ideation , intent or plan. The patient denied homicidal targets, ideation, intent or plan. This patient participated in psychosocial rehabilitation and gained some insight into problems. The patient gained insight into mental illness, triggers, and treatment. The patient took medication as prescribed. The patient denied side effects of medication and objective signs of side effects were not evident. Therapy Resources were offered to the patient. Patient was given a supply of prescriptions at the time of discharge. The patient plans to attend follow up care with the follow up arrangements that were discussed and put in place. Patient was asked to keep appointments as scheduled, take medication as prescribed, have routine follow up care with their primary care physician and refrain from any use of alcohol or drugs. Objective - General Observations Appearance: Neat Appears Stated Age: Yes Stature: Overweight Posture: Slumped Eye Contact: Average Behavior/Activity: WNL - Interaction Observations Attitude Towards Examiner: Cooperative Stated Mood: Euthymic Affect: Blunted Speech Pattern/Tone: Clear Thought Process: Coherent Perception: WNL Thought Content: WNL Hallucination Type: None Delusion Type: None - Cognitive Function Orientation: A&O x 4 Level of Consciousness: Awake Cognition: WNL Estimated Intelligence: Normal Judgment Within Normal Limits: Yes - Medication Compliance Cooperative with Inpatient Medication Regimen: Yes - Group Participation Participates in Group Activities: Yes Treatment Course & Assessment Clinical Course & Impression: Hospital course part A: 28 year old female with a history of depression presented to the [facility] with commanding auditory hallucinations telling her to kill herself Hospital course part B: Labs ordered included CBC, CMP, UDS, TSH, HBA1c, TSH, Toxicology screen, Urine analysis, MMPI, B-HCG, MRI Ankle, Chest X-ray, and lipid profile. Vital signs were monitored during the course of admission. The patient was admitted to the adult behavioral unit and placed on 15 minute check for safety. At a later time the patient was on Q30 minute observation and staff pass privileges. With those limits being extended , there were no occurrence of behavioral incidents. The patient did well on the unit and went to groups. Interacted with peers had adequate sleep and regular appetite. Tolerated medication changes without side effects. Group therapy and services were offered. The risks, benefits, and alternative treatment options were discussed as well as of the risks of refusing treatment. Treatment associated risks discussed. After this discussion and made an acknowledgement of this understanding. Follow up care appointments were put in place for follow up care. The importance of monitoring for metabolic changes was emphasized. Improvements in patient from the time of admission include: Improved affect, sleep and decrease in anxiety. No longer suicidal and no longer having feelings of hopelessness. The patient expressed readiness for discharge home. The patient presents with a broader range of affect, and the absence of depressed mood, delusions, perceptual disturbances. The patient denied suicidal and or homicidal ideation intent or plan. Overall, the patient responded well to inpatient treatment as evidenced by their report of strengthening of coping mechanisms, reduced distress, and more positive outlook on circumstances. Of note there was an improvement of recognizing how emotional state can effect mood and behavior. Safety precautions were put in place which included involving the patient and their family to closely monitor for changes in mental state. In addition, implementing follow up care, screening for the need to remove/securing firearms , weapons and stockpile of medications. Patient/ family instructed to immediately call 911 should any safety concerns arise. B-HCG is negative for current . She was informed of the risks associated with medication in . In the event that she becomes in the future and was advised to talk with her outpatient healthcare provider about starting or stopping medications during . The patient was advised of the 24 hour / 7 days a week availability of the emergency room and to call 911 in the event of an emergency such as being suicidal and/ or homicidal. The patient was informed of the contact information for [facility], Suicide Prevention and Crisis Services, National Suicide Prevention Lifeline, [facility], Alcoholics Anonymous, and [facility]. Consult was made to hospitalist team for increased WBC and weight loss. MRI ankle was ordered and findings showed post surgical changes, partial tear of anterior tibofibular and anterior talofibular ligaments. Chest xray showed no active cardiopulmonary disease. Patient advised to follow up with her PCP for monitoring. Medications started included fluvoxamine 100mg daily and increased to 200mg daily. Buspar 15mg BID She showed positive clinical response and good tolerance. Nicotine gum was provided and smoking and cannabis cessation resources offered and declined. Gabapentin was continued 300mg TID. Family was contacted and are in agreement with discharge plan. Father was contacted and confirmed that firearms are locked and out of her access. After titration of treatment patient no longer was experiencing the distress caused by taboo thought intrusions from OCD. Her voices were not related to psychosis but rather to OCD. Patient will be discharged to her home. Her mother picked her up from the hospital. Follow up appointment at PCP with Dr. Verdugo and a psychiatrist referral was provided. Patient informed of follow up appointment times. See more details for follow of care in discharge plan. Risk factors: Single, history of mental illness. Protective factors: Currently no suicidal ideation, intent or plan. No prior history of suicide attempt. Has strong support system. No history of service. Currently no feelings of hopelessness, not in an occupation of social isolation, doesnt have multiple medical conditions, no family history of suicide, doesnt have access to firearms. Doesnt have command hallucinations and or psychotic features at this time. No history of substance abuse. No history of alcohol abuse. Not a anniversary of a loss of a loved one. No changes in relationship status, housing, job, or school. Currently future orientated. Patient engaged in treatment and compliant with medication. Merits Inpatient Hospitalization: No Clear for Discharge: Adequate Clinical Respons Discharge Planning - Discharge Planning Discharge Plan: Outpatient Follow Up Outpatient Program: Private Clinician(s) Recommendations for Continuing Care: Medication Management Medications: Current Medications Acetaminophen (Tylenol Tab*) 650 mg PO Q4H PRN PRN Reason: PAIN or TEMP > 101 F Last Admin: 10/09/18 20:14 Dose: 650 mg Al Hydrox/Mg Hydrox/Simethicone (Maalox Plus*) 30 ml PO Q4H PRN PRN Reason: INDIGESTION Buspirone HCl (Buspar Tab *) 15 mg PO BID [facility] Last Admin: 10/09/18 20:11 Dose: 15 mg Diphenhydramine HCl (Benadryl Po*) 50 mg PO BEDTIME PRN PRN Reason: INSOMNIA Last Admin: 10/09/18 20:14 Dose: 50 mg Fluvoxamine Maleate (Fluvoxamine (Nf)) 200 mg PO DAILY [facility] Last Admin: 10/09/18 09:02 Dose: 200 mg Gabapentin (Neurontin Cap(*)) 300 mg PO TID [facility] Last Admin: 10/09/18 20:11 Dose: 300 mg Multivitamins (Theragran Tab*) 1 tab PO DAILY [facility] Last Admin: 10/09/18 09:04 Dose: 1 tab Naproxen (Naprosyn Tab*) 500 mg PO DAILY PRN PRN Reason: PAIN Last Admin: 10/09/18 09:04 Dose: 500 mg Nicotine (Nicotine Patch 14 Mg/24 Hr*) 1 patch TRANSDERM DAILY [facility] Last Admin: 10/09/18 09:03 Dose: Not Given Nicotine Polacrilex (Nicotine Gum*) 2 mg PO Q2H PRN PRN Reason: CRAVING Pharmacy Profile Note (Nicotine Patch Removal Note*) 1 note PATCH OFF 2100 [facility] Last Admin: 10/09/18 21:24 Dose: Not Given Sodium Chloride (Sodium Chloride 0.65% Nasal [place]*) 1 spray BOTH NARES Q4H PRN PRN Reason: DRY SKIN Last Admin: 10/09/18 09:04 Dose: 1 spray Discharge Planning: Prescriptions provided for discharge [x] Yes [] No Follow up care details as per social work arrangements. Patient response to discharge plan: [] eager for discharge [x] agreeable with discharge plan [] ambivalent about discharge [] disagrees with discharge today
[2018-10-10] MEDS: Saline NASAL SPRAY 0.65%* BTL BOTH NARES PRN (08:16)
[2018-10-10] MEDS: Acetaminophen TAB* 325 MG PO PRN (08:17)
[2018-10-10] MEDS: CMC:FluvoxaMINE (NF) 50 MG TAB PO SCH (08:17)
[2018-10-10] MEDS: busPIRone TAB* 15 MG PO SCH (08:17)
[2018-10-10] MEDS: Vitamin THERAPEUTIC TAB PO SCH (08:17)
[2018-10-10] MEDS: Gabapentin CAP(*) 300 MG PO SCH (08:18)
[2018-10-10] MEDS: Nicotine PATCH 14 MG/24 HR* PATCH TRANSDERM SCH (08:58)
== END 2018-10-10 13:13 | disposition home or self-care (01) | DRG 755 ==
LOC: ED 20:31 → BSU 10-05 02:00
PROVIDERS: ADMIT Psychiatry & Neurology Psychiatry; ATTEND Psychiatry & Neurology Psychiatry
DX: F42.9 Obsessive-compulsive disorder, unspecified (principal); R45.851 Suicidal ideations; Z68.42 Body mass index [BMI] 45.0-49.9, adult; F32.9 Major depressive disorder, single episode, unspecified; F41.1 Generalized anxiety disorder; F12.90 Cannabis use, unspecified, uncomplicated; E66.9 Obesity, unspecified; M25.571 Pain in right ankle and joints of right foot; R63.4 Abnormal weight loss; D72.829 Elevated white blood cell count, unspecified; G89.29 Other chronic pain; S93.431A Sprain of tibiofibular ligament of right ankle, initial encounter; X58.XXXA Exposure to other specified factors, initial encounter; S93.491A Sprain of other ligament of right ankle, initial encounter; Z83.3 Family history of diabetes mellitus; Z91.048 Other nonmedicinal substance allergy status; Z82.49 Family history of ischemic heart disease and other diseases of the circulatory system; Z72.0 Tobacco use; Z82.5 Family history of asthma and other chronic lower respiratory diseases; Z72.89 Other problems related to lifestyle; Y92.9 Unspecified place or not applicable
CPT/HCPCS: 36415; 71046; 80053; 80061; 80307; 80320; 80329; 81003; 81015; 83036; 84443; 84702; 85025; 85060; 87086; 99222; 99231; 99233; 99238; 99284; A9270-GY; G0480